=== PATIENT | female | born 1990 | race Caucasian/White ===

== ENCOUNTER → 2016-08-01 | Outpatient (CLI) | payer OTHER ==
[2016-08-01 17:19] LABS: BASO % 0.3 % (0.0-1.0); EOS # 0.1 K/mm3 (0.0-0.50); EOS % 0.6 % (0.0-3.0); LARGE UNSTAINED CELL # 0.1 K/mm3 (0.0-0.4); LARGE UNSTAINED CELL % 1.1 % (0.0-4.0); LYMPH # 2.2 K/mm3 (1.5-6.5); LYMPH % 23.4 % (24.0-44.0); MEAN CORPUSCULAR HGB CONC 33.6 g/dl (32.0-36.5); MEAN CORPUSCULAR VOLUME 92.4 fl (80.0-96.0); MONO # 0.4 K/mm3 (0.0-0.8); MONO % 4.2 % (0.0-5.0); NEUTROPHILS # 6.5 K/mm3 (1.8-7.7); NEUTROPHILS % 70.3 % (36.0-66.0); PLATELET COUNT, AUTOMATED 335 k/mm3 (150-450); WHITE BLOOD COUNT 9.2 K/mm3 (4.0-10.0)
[2016-08-02 11:31] LABS: HBsAg Prenatal NEGATIVE (NEGATIVE)
== END ==
LOC: M SMT 13:18
PROVIDERS: ATTEND Specialist
DX: Z34.81 Encounter for supervision of other normal pregnancy, first trimester (principal)

== ENCOUNTER → 2016-09-06 | Outpatient (REF) | payer MEDICAID, OTHER | LOC: M LAB REF 17:11 | PROVIDERS: ATTEND Advanced Practice Midwife | DX: Z34.81 Encounter for supervision of other normal pregnancy, first trimester (principal) ==

== ENCOUNTER 2017-03-09 17:10 | Inpatient (IN) | payer OTHER ==
[2017-03-09] MEDS: LR 1,000 ML IV (18:00)
[2017-03-09 18:48] LABS: HEMATOCRIT 33.8 % (36.0-47.0); MEAN CORPUSCULAR HEMOGLOBIN 28.1 pg (27.0-33.0); MEAN CORPUSCULAR HGB CONC 32.5 g/dl (32.0-36.5); MEAN CORPUSCULAR VOLUME 86.2 fl (80.0-96.0); PLATELET COUNT, AUTOMATED 309 10^3/uL (150-450); RED BLOOD COUNT 3.92 10^6/uL (4.00-5.40); RED CELL DISTRIBUTION WIDTH 12.6 % (11.5-14.5); WHITE BLOOD COUNT 8.3 10^3/uL (4.0-10.0)
[2017-03-09 19:11] LABS: AMPHETAMINES URINE REFLEX NEGATIVE (NEGATIVE); BARBITURATES URINE REFLEX NEGATIVE (NEGATIVE); BENZODIAZEPINES URINE REFLEX NEGATIVE (NEGATIVE); CANNABINOIDS URINE REFLEX NEGATIVE (NEGATIVE); COCAINE METABOLITE URINE REFLE NEGATIVE (NEGATIVE); METHADONE URINE REFLEX NEGATIVE (NEGATIVE); OPIATES URINE REFLEX NEGATIVE (NEGATIVE); PHENCYCLIDINE URINE REFLEX NEGATIVE (NEGATIVE)
[2017-03-09] MEDS: OXYTOCIN DRIP 30 UNITS in APPROPRIATE DILUENT 1 EA IV (21:31)
[2017-03-09] MEDS: CALCIUM CARBONATE 500 MG CHEW U/D PO (22:25)
[2017-03-09] MEDS: BUTORPHANOL 2 MG/ML INJ (J0595) IV (23:11)
[2017-03-09] MEDS: PROMETHAZINE INJ 25 MG/ML VIAL (J2550) IV (23:11)
[2017-03-10] MEDS ORDERED: MOM 30ML SUSPENSION UDC PO (01:30)
[2017-03-10] MEDS ORDERED: MEASLES,MUMPS,RUBELLA VACCINE INJ (MMR-II) (90707) SC (01:30)
[2017-03-10] MEDS ORDERED: DIBUCAINE 1% OINTMENT 30GM TOP (01:30)
[2017-03-10] MEDS ORDERED: DOCUSATE SODIUM 100 MG CAP PO (01:30)
[2017-03-10] MEDS ORDERED: RHOGAM 300 MCG (1500 IU) INJ (J2790) IM (01:30)
[2017-03-10] MEDS ORDERED: METHYLERGONOVINE MALEATE 0.2 MG TAB PO (01:30)
[2017-03-10] MEDS ORDERED: ANUSOL HC CREAM 30GM TOP (01:30)
[2017-03-10] MEDS: IBUPROFEN 800 MG TAB PO (02:48)
[2017-03-10] MEDS: ACETAMINOPHEN 500 MG TAB PO (06:10)
[2017-03-10] MEDS: PRENATAL VITAMINS CHEWABLE TABLET PO (09:00)
[2017-03-11] MEDS: IBUPROFEN 800 MG TAB PO (05:53)
== END 2017-03-11 13:25 | disposition home or self-care (01) | DRG 560 ==
LOC: M LDO 17:10 → M OBS 03-10 02:59 → M LDI 18:05
PROVIDERS: Advanced Practice Midwife
PROC: 10E0XZZ Delivery of Products of Conception, External Approach (ICD-10-PCS; principal; 2017-03-10)
DX: O42.02 Full-term premature rupture of membranes, onset of labor within 24 hours of rupture (principal); Z37.0 Single live birth; Z3A.38 38 weeks gestation of pregnancy

== ENCOUNTER 2017-04-27 07:27 | Day surgery (SDC) | payer OTHER ==
[2017-04-27 08:02] LABS: HEMATOCRIT 39.1 % (36.0-47.0); HEMOGLOBIN 12.4 g/dl (12.0-16.0); MEAN CORPUSCULAR HEMOGLOBIN 27.7 pg (27.0-33.0); MEAN CORPUSCULAR HGB CONC 31.7 g/dl (32.0-36.5); MEAN CORPUSCULAR VOLUME 87.5 fl (80.0-96.0); PLATELET COUNT, AUTOMATED 342 10^3/uL (150-450); RED BLOOD COUNT 4.47 10^6/uL (4.00-5.40); RED CELL DISTRIBUTION WIDTH 13.3 % (11.5-14.5)
[2017-04-27 08:10] LABS: CONTROL LINE HCG INT CTR LINE PRESENT; HCG, SERUM QUALITATIVE NEGATIVE (NEGATIVE)
[2017-04-27] MEDS ORDERED: ROCURONIUM BROMIDE 50 MG/5 ML VIAL As Ordered (08:17)
[2017-04-27] MEDS ORDERED: LIDOCAINE 2% INJ 100 MG/5 ML SDV (FOR ANES.) As Ordered (08:17)
[2017-04-27] MEDS ORDERED: MIDAZOLAM INJ 2 MG/2 ML VIAL (J2250) As Ordered (08:17)
[2017-04-27] MEDS ORDERED: SUCCINYLCHOLINE 100 MG/5 ML SYRINGE (J0330) As Ordered (08:17)
[2017-04-27] MEDS ORDERED: fentaNYL 100 MCG/2 ML INJECTION (J3010) As Ordered (08:17)
[2017-04-27] MEDS ORDERED: PROPOFOL 200 MG/20 ML VIAL As Ordered (08:17)
[2017-04-27] MEDS ORDERED: ONDANSETRON 4MG/2ML VIAL (J2405) As Ordered (08:17)
[2017-04-27] MEDS ORDERED: METOCLOPRAMIDE INJ 10MG/2ML VIAL (J2765) As Ordered (08:17)
[2017-04-27] MEDS: LR 1,000 ML IV ×2 (08:20→09:51)
[2017-04-27] MEDS: BUPIVACAINE HCL 0.25% 30 ML VIAL As Ordered (09:25)
[2017-04-27] MEDS ORDERED: ePHEDrine INJ 50 MG/ML VIAL As Ordered (09:28)
[2017-04-27] MEDS ORDERED: KETOROLAC 30 MG/ML VIAL (J1885) As Ordered (10:11)
[2017-04-27] MEDS ORDERED: KETOROLAC 30 MG/ML VIAL (J1885) IV (10:15)
[2017-04-27] MEDS: NORCO, ANEXSIA 5/325MG TABLET (HYDROcodone/ACETAMINOPHEN) PO (10:15)
[2017-04-27] MEDS: KETOROLAC 30 MG/ML VIAL (J1885) IV (10:15)
[2017-04-27] MEDS: ONDANSETRON 4MG/2ML VIAL (J2405) IV (10:15)
[2017-04-27] MEDS ORDERED: PERCOCET 5MG/325MG TAB PO (10:15)
[2017-04-27] MEDS: fentaNYL 100 MCG/2 ML INJECTION (J3010) IV ×4 (10:30→10:45)
== END 2017-04-27 11:50 | disposition home or self-care (01) ==
LOC: M SDC 07:27
DX: Z30.2 Encounter for sterilization (principal)
CPT/HCPCS: 58671

== ENCOUNTER 2017-07-03 17:50 | Emergency (ER) | payer MEDICAID | END 2017-07-03 20:05 | disposition left against medical advice (07) | LOC: M ED 17:50 | DX: Z53.21 Procedure and treatment not carried out due to patient leaving prior to being seen by health care provider (principal) ==

== ENCOUNTER 2017-11-26 10:00 | Emergency (ER) | payer OTHER ==
[2017-11-26] MEDS: LIDOCAINE VISCOUS 2% SOLN 15ML UDC MT (11:23)
== END 2017-11-26 11:24 | disposition home or self-care (01) ==
LOC: M ED 10:00
DX: K04.7 Periapical abscess without sinus (principal); F33.9 Major depressive disorder, recurrent, unspecified; Z91.040 Latex allergy status; F17.210 Nicotine dependence, cigarettes, uncomplicated
CPT/HCPCS: 99282

== ENCOUNTER → 2018-05-23 | Outpatient (CLI) | payer OTHER ==
[~2018-05-23] MED LIST: CLEO300C2 PO; COLA100C5 PO; IBUP1TAB7 PO; MAPA500T2 PO; MOTR200T44 PO; NORCOTAB PO; PERC5TAB12 PO; PRENTAB9 PO; TUMS500C PO; ZOLO50TA PO
[2018-05-23 19:02] LABS: FREE T4 1.01 NG/DL (0.76-1.46); THYROID STIMULATING HORMONE 0.633 uIU/ML (0.358-3.740)
[2018-05-23 19:30] LABS: HEMOGLOBIN 12.8 g/dl (12.0-15.5); MEAN CORPUSCULAR HEMOGLOBIN 29.8 pg (27.0-33.0); MEAN CORPUSCULAR HGB CONC 32.8 g/dl (32.0-36.5); MEAN CORPUSCULAR VOLUME 90.9 fl (80.0-96.0); PLATELET COUNT, AUTOMATED 331 10^3/uL (150-450); RED BLOOD COUNT 4.29 10^6/uL (4.00-5.40); WHITE BLOOD COUNT 5.8 10^3/uL (4.0-10.0)
== END ==
LOC: M SMT 13:12
PROVIDERS: ATTEND Obstetrics & Gynecology
DX: N92.0 Excessive and frequent menstruation with regular cycle (principal)

== ENCOUNTER → 2018-05-23 | Outpatient (REF) | payer OTHER | LOC: M LAB REF 17:49 | PROVIDERS: ATTEND Obstetrics & Gynecology | DX: Z12.4 Encounter for screening for malignant neoplasm of cervix (principal); R87.610 Atypical squamous cells of undetermined significance on cytologic smear of cervix (ASC-US) ==

== ENCOUNTER → 2018-05-28 | Outpatient (CLI) | payer OTHER ==
[~2018-05-28] MED LIST changes: +PERCOCET PO
--- NOTE | 2018-05-29 05:46 | REP ---
Clinical: Abnormal menstruation. Technique: Transabdominal pelvic ultrasound. Findings: Bladder is unremarkable and measures 9.9 x 9.4 x 6.3 cm . Normal anteverted uterus measures 10.0 x 3.5 x 5.4 cm . The endometrial complex measures as 2.7 mm thickness. No discrete uterine or endometrial abnormalities are appreciated. Bilateral ovaries are normal in appearance. Right ovary measures 3.7 x 1.8 x 2.9 cm. Left ovary measures 3.3 x 1.8 x 1.9 cm. No pelvic fluid or adnexal mass lesion . Impression: 1. normal pelvic ultrasound. Electronically Signed by Rayshawn Anderson MD 05/29/2018 05:38 A
== END ==
LOC: M RAD 14:44
PROVIDERS: ATTEND Obstetrics & Gynecology
DX: N92.0 Excessive and frequent menstruation with regular cycle (principal)

== ENCOUNTER 2018-06-07 08:01 | Day surgery (SDC) | payer OTHER ==
[2018-06-07] VITALS (8 sets, daily range): BP systolic 100–122; BP diastolic 50–75
[~2018-06-07] VITALS: Ht 165.1 cm; Wt 53.5 kg
[~2018-06-07 08:01] MED LIST changes: +LR 1,000 ML IV ONE
[2018-06-07 08:41] LABS: HEMATOCRIT 37.5 % (36.0-47.0); HEMOGLOBIN 12.3 g/dl (12.0-15.5); MEAN CORPUSCULAR HEMOGLOBIN 29.6 pg (27.0-33.0); MEAN CORPUSCULAR HGB CONC 32.8 g/dl (32.0-36.5); MEAN CORPUSCULAR VOLUME 90.4 fl (80.0-96.0); PLATELET COUNT, AUTOMATED 276 10^3/uL (150-450); RED BLOOD COUNT 4.15 10^6/uL (4.00-5.40); WHITE BLOOD COUNT 8.5 10^3/uL (4.0-10.0)
[2018-06-07] MEDS ORDERED: BUPIVACAINE HCL 0.25% 30 ML VIAL As Ordered ONE (09:08)
[2018-06-07] MEDS ORDERED: MIDAZOLAM INJ 2 MG/2 ML VIAL (J2250) As Ordered ONE (09:17)
[2018-06-07] MEDS ORDERED: fentaNYL 250 MCG/5 ML INJECTION (J3010) As Ordered ONE (09:17)
[2018-06-07] MEDS ORDERED: LIDOCAINE 2% INJ 100 MG/5 ML SDV (FOR ANES.) As Ordered ONE (09:18)
[2018-06-07] MEDS ORDERED: ROCURONIUM BROMIDE 50 MG/5 ML VIAL As Ordered ONE (09:18)
[2018-06-07] MEDS ORDERED: PROPOFOL 200 MG/20 ML VIAL As Ordered ONE (09:18)
[2018-06-07 09:25] LABS: HCG, SERUM QUALITATIVE NEGATIVE (NEGATIVE)
[2018-06-07] MEDS ORDERED: dexameTHASONE 4 MG/ML 1ML VIAL (J1100) As Ordered ONE (10:16)
[2018-06-07] MEDS ORDERED: KETOROLAC 60 MG/2 ML VIAL (J1885) As Ordered ONE (10:33)
[2018-06-07] MEDS ORDERED: ACETAMINOPHEN 1000MG 100ML IV BTL (OFIRMEV) (J0131 PER 10MG) As Ordered ONE (10:33)
[2018-06-07] MEDS ORDERED: NEOSTIGMINE 10 MG/10 ML VIAL (J2710) As Ordered ONE (10:33)
[2018-06-07] MEDS ORDERED: HYDROmorphone HCL 2 MG/ML 1ML VIAL (J1170) As Ordered ONE (10:33)
[2018-06-07] MEDS ORDERED: GLYCOPYRROLATE INJ 0.2 MG/ML 2 ML VIAL As Ordered ONE (10:33)
[2018-06-07] MEDS: fentaNYL 100 MCG/2 ML INJECTION (J3010) IV PRN ×4 (11:55→12:18)
[2018-06-07] MEDS ORDERED: LR 1,000 ML IV SCH ×2 (12:00)
[2018-06-07] MEDS ORDERED: PERCOCET 5MG/325MG TAB PO PRN (12:00)
[2018-06-07] MEDS ORDERED: MORPHINE 4 MG/ML 1ML VIAL/SYRINGE (J2270) IV PRN (12:00)
[2018-06-07] MEDS ORDERED: NORCO, ANEXSIA 5/325MG TABLET (HYDROcodone/ACETAMINOPHEN) PO PRN (12:00)
[2018-06-07] MEDS ORDERED: zolPIDEM TARTRATE 5 MG TAB PO PRN (12:00)
[2018-06-07] MEDS ORDERED: ONDANSETRON 4MG/2ML VIAL (J2405) IV PRN (12:00)
[2018-06-07] MEDS ORDERED: PROMETHAZINE INJ 25 MG/ML VIAL (J2550) IV PRN (12:00)
--- NOTE | 2018-06-07 12:32 | RO ---
DATE OF PROCEDURE: 06/07/2018 PREOPERATIVE DIAGNOSIS: Abnormal uterine bleeding. POSTOPERATIVE DIAGNOSIS: Abnormal uterine bleeding. PROCEDURE PERFORMED: 1. Robotic-assisted laparoscopic hysterectomy. 2. Bilateral salpingectomy. 3. Cystoscopy. SURGEON: Constance Suazo MD HEAD OF TRAINING AND DEVELOPMENT: Caroline Pandey NP ANESTHESIA: General endotracheal anesthesia. ESTIMATED BLOOD LOSS: 100 mL. IV FLUIDS: 500 mL of lactated Ringer solution. URINE OUTPUT: 100 mL. SPECIMENS: Uterus, cervix, bilateral fallopian tubes with bilateral Filshie clips. PREOPERATIVE ANTIBIOTICS: 2 grams of Ancef. INFECTION CLASSIFICATION: II. DESCRIPTION OF OPERATION: After informed consent was obtained and written consent was reviewed, the patient was brought to the operating room where she was placed under general endotracheal anesthesia. She was then placed in lithotomy position and was prepped and draped in normal sterile fashion. A time out in the operating room was then performed identifying the patient, the procedure to be performed, as well as drug allergies. A bivalved speculum was then placed revealing the cervix. The anterior lip of the cervix was grasped with a single tooth tenaculum. The anterior and posterior aspects of the cervix were stitched with #0 Vicryl. The uterus then sounded to 9 cm. An extra large VCare uterine manipulator was then advanced to the cervical os for means to manipulate the uterus. The intrauterine balloon was insufflated with 7 mL of air. The vaginal cap was then placed over the cervix and the vaginal sleeve was then placed into the vagina. The single tooth tenaculum was removed. The Blevins catheter was then placed and set to gravity. Gloves were changed and attention was then turned to the patient's abdomen where a Veress needle was placed into the umbilicus. A pneumoperitoneum was then obtained with CO2 gas. 0.25% Marcaine was then infused in the supraumbilical area. This area was incised and an 8 mm trocar and sleeve was advanced through this incision. Laparoscope was then replaced revealing intra-abdominal placement. Three additional port sites were placed on either side of the umbilicus. On the right side, there was one incision that was made after infusing 0.25% Marcaine. Incision was made in this area and an 8 mm trocar and sleeve was advanced through this incision under direct visualization. On the patient's left side, two incisions were made approximately 6 cm apart from one another. These areas were infused with 0.25% Marcaine. Incision was made in each one of these areas and 8 mm trocars and sleeves advanced through each one of these incisions under direct visualization. Next, the da Kevin was then docked utilizing two operative arms and one camera. Next, bilateral salpingectomies were then performed using a vessel sealer. The right fallopian tube was placed on traction. It was dissected along the mesosalpinx and was transected at the level of the uterus. In a similar fashion, the left fallopian tube was placed on traction and using a vessel sealer was transected along the mesosalpinx and was transected at the level of the uterus. These specimens were then removed from the patient's abdomen. Next, the ovarian ligaments bilaterally were cauterized and ligated with good hemostasis noted. The round ligaments bilaterally were cauterized and ligated with good hemostasis noted. The broad ligaments were then and dissected anteriorly and was then dissected along the bladder creating a bladder flap. The remainder of the broad and cardinal ligament was then dissected and cauterized with good hemostasis noted. The uterine vessels were then skeletonized bilaterally and were cauterized and ligated with good hemostasis noted. Next, anterior and posterior colpotomies were then made with the Endo jasmeet monopolar. The specimens then removed vaginally. The vaginal cuff was then closed using an #0 V-Loc in a running fashion. The surgical sites were irrigated and suctioned. The surgical sites were noted to be hemostatic. Theo was applied over the surgical field. The pneumoperitoneum was released. Next, cystoscopy was then performed, Blevins catheter was removed. A 70 degrees cystoscope was advanced transurethrally and the bladder was inspected showing normal bladder mucosa with no foreign bodies. Bilateral ureter jets were observed. The bladder was then drained and the cystoscope was removed. Gloves were changed. Attention was turned to the patient's abdomen where all four skin incisions were closed with #4-0 Monocryl and dressed with Dermabond. The patient was then taken out lithotomy position, was awakened from general anesthesia and taken to recovery in stable condition. Counts were correct. Caroline Pandey, my medical surgical tech, played an essential role during surgery. She assisted with port placement, tissue retraction and identification, as well as, wound closure.
[2018-06-07] MEDS: KETOROLAC 30 MG/ML VIAL (J1885) IV SCH ×2 (17:07→22:10)
[2018-06-07] MEDS: PERCOCET 5MG/325MG TAB PO PRN (18:49)
[2018-06-08] VITALS: BP 105/54
[2018-06-08 04:00] VITALS: BP 114/53
[2018-06-08] MEDS: KETOROLAC 30 MG/ML VIAL (J1885) IV SCH ×2 (04:43→10:28)
[2018-06-08 07:00] LABS: HEMATOCRIT 31.4 % (36.0-47.0); HEMOGLOBIN 10.4 g/dl (12.0-15.5); MEAN CORPUSCULAR HEMOGLOBIN 29.3 pg (27.0-33.0); MEAN CORPUSCULAR HGB CONC 33.1 g/dl (32.0-36.5); MEAN CORPUSCULAR VOLUME 88.5 fl (80.0-96.0); PLATELET COUNT, AUTOMATED 269 10^3/uL (150-450); RED BLOOD COUNT 3.55 10^6/uL (4.00-5.40)
[2018-06-08] MEDS: PERCOCET 5MG/325MG TAB PO PRN (07:45)
[2018-06-08 08:00] VITALS: BP 103/58
== END 2018-06-08 10:45 | disposition home or self-care (01) ==
LOC: M SDC 08:01 → M PED 12:35 → M SDC 06-08 10:45
PROVIDERS: ATTEND Obstetrics & Gynecology
DX: N92.6 Irregular menstruation, unspecified (principal); N72 Inflammatory disease of cervix uteri; N94.6 Dysmenorrhea, unspecified; F41.9 Anxiety disorder, unspecified; F32.9 Major depressive disorder, single episode, unspecified; D64.9 Anemia, unspecified; F17.210 Nicotine dependence, cigarettes, uncomplicated; Z91.040 Latex allergy status
CPT/HCPCS: 36415; 58571; 84703; 85027; 86850; 86900; 86901; 88307; J0131; J0690; J1100; J1170; J1885; J2250; J2405; J2710; J3010

== ENCOUNTER → 2019-07-01 | Outpatient (CLI) | payer OTHER ==
[~2019-07-01] MED LIST changes: +HYDR-3715 PO; -LR 1,000 ML IV ONE; -NORCOTAB PO
--- NOTE | 2019-07-01 14:40 | REP ---
REASON: Pain after trauma. FINDINGS: No acute fracture or destructive osseous lesion. Electronically Signed by Prateek Aragon DO 07/01/2019 04:50 P
== END ==
LOC: M LRY 13:29
PROVIDERS: ATTEND Physician Assistant
DX: S69.91XA Unspecified injury of right wrist, hand and finger(s), initial encounter (principal); X58.XXXA Exposure to other specified factors, initial encounter; Y92.89 Other specified places as the place of occurrence of the external cause; Y93.9 Activity, unspecified; Y99.9 Unspecified external cause status

== ENCOUNTER → 2019-12-22 | Outpatient (CLI) | payer OTHER | LOC: M WHC 11:00 | PROVIDERS: ATTEND Obstetrics & Gynecology | DX: Z53.9 Procedure and treatment not carried out, unspecified reason (principal); N83.201 Unspecified ovarian cyst, right side ==

== ENCOUNTER → 2019-12-26 | Outpatient (CLI) | payer OTHER ==
--- NOTE | 2019-12-26 10:49 | REP ---
INDICATION: N83.201 RT OVARIAN CYST COMPARISON: 05/28/2018 TECHNIQUE: Transabdominal pelvic ultrasound with color Doppler evaluation of the ovaries. FINDINGS: Bladder is unremarkable and measures 9.2 x 7.4 x 10.3 cm. Patient gives a history of prior hysterectomy but images suggest the possibility of partial hysterectomy with at least residual cervical and lower uterine segment remnant. No significant pelvic fluid or mass lesion is appreciated. Bilateral ovaries are normal in appearance and vascularity without evidence for torsion. Right ovary measures 2.9 x 1.7 x 3.0 cm with 1.3 cm presumed physiologic cyst/dominant follicle; R I = normal blood flow noted. Left ovary measures 2.7 x 1.8 x 2.8 cm; R I = normal blood flow noted. IMPRESSION: 1. Findings most compatible. 2. Essentially normal appearance of the ovaries with 1.3 cm presumed right ovarian follicle/physiologic cyst. <Electronically signed by Rayshawn Anderson > 12/26/19 [id number]
== END ==
LOC: M WHC 09:51
PROVIDERS: ATTEND Obstetrics & Gynecology
DX: N83.201 Unspecified ovarian cyst, right side (principal)